=== PATIENT | female | born 1945 | race Caucasian/White ===

== ENCOUNTER 2024-09-10 09:53 | Outpatient (CLI) | payer MEDICARE, BC, SELFPAY ==
--- NOTE | ~2024-09-10 | MR_ITS ---
MRI of the brain Clinical History: Myelopathy, MS Technique: Axial and sagittal T1-weighted images were acquired. These were followed by axial T2-weigh anabelle, diffusion weighted, gradient, and FLAIR images. Following intravenous administration of 10 cc Pr oHance gadolinium, T1-weighted fat-sat imaging was performed in the axial, coronal, and sagittal plan es. COMPARISON: 10/09/2017 Findings: No acute infarct, internal hemorrhage or mass lesion seen. There are numerous white matter lesions throughout the periventricular white matter bilaterally, similar to prior exam. Ventricles and subarachnoid spaces are unremarkable. Orbits are unremarkable. There is bilateral maxi llary and ethmoid sinus disease. Remaining paranasal sinuses are clear. Major intracranial flow voids appear intact. Sagittal midline structures are intact. No abnormal postcontrast enhancement identified. IMPRESSION: Stable extensive white matter disease, compatible history of multiple sclerosis. No active/enhancing plaque identified. Reviewed, dictated and finalized at [facility]. IMPRESSION: Stable extensive white matter disease, compatible history of multiple sclerosis . No active/enhancing plaque identified.
--- NOTE | ~2024-09-10 | MR_ITS ---
MRI of the cervical spine Clinical History: Myelopathy, MS Technique: Axial T2-weighted and gradient images, and sagittal T1-weighted, T2-weighted, and STIR radha ges were acquired. Following intravenous administration of 10 cc ProHance gadolinium, T1-weighted fat -sat imaging was performed in the axial and sagittal planes. COMPARISON: 10/09/2017 Findings: No acute fracture seen. Minimal grade 1 retrolisthesis of C4 over C5, and of C5 over C6 are present. 4 mm anterolisthesis of C7 over T1 present. No suspicious bone marrow signal abnormality se en. At C2-C3, there is no disc bulge or herniation. No spinal canal stenosis, cord compression, or neural foraminal narrowing. There is mild left facet arthropathy. At C3-C4, there is no significant disc bulge or herniation. There is mild facet arthropathy. No centr al canal stenosis, cord compression, or neural foraminal narrowing. At C4-C5, there is advanced degenerative disc disease. There is minimal disc bulge. No spinal canal s tenosis or cord compression. There is moderate bilateral neural foraminal narrowing, right worse than left. At C5-C6, there is advanced degenerative disc narrowing. There is disc osteophyte complex with modera te canal stenosis and mild ventral cord compression. There is advanced bilateral neural foraminal dajuan rowing. At C6-C7, there is advanced degenerative disc narrowing. There is minimal disc bulge. No spinal canal stenosis or cord compression. There is mild to moderate bilateral neural foraminal narrowing. No definite abnormal signal seen in the spinal cord. Paravertebral soft tissues are unremarkable. No abnormal postcontrast enhancement seen. Impression: Moderate degenerative spondylosis, worst at C5-C6, as detailed above. No distinct spinal cord signal abnormality seen. 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 Reviewed, dictated and finalized at [facility]. Impression: Moderate degenerative spondylosis, worst at C5-C6, as detailed above. No distinct spinal cord signal abnormality seen. 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
--- NOTE | 2024-09-10 12:38 | WPDPFTINT ---
PFT Procedure Performed PFT Procedure Performed Plethysmography (Lung Vol) Diffusing Cap (DLCO) Flow Vol Loop Spirometry w/o Bronchodil PFT Interpretation This is a pulmonary function test with spirometry, plethysmography and diffusing capacity. The test was performed and results interpreted in accordance with the 2019 and 2005 ATS/ERS Task Force guidelines respectively using the Global Lung Function Initiative-2012 reference equations. Patient demonstrated good effort and cooperation. Reproducibility criteria were met. The quality of the spirometry maneuver was Grade A. Findings: Spirometry: The contour the inspiratory and expiratory flow tracing are normal. The FVC is 2.73 L, 104% predicted. The FEV1 is 1.77 L, 89% predicted. The FEV1: FVC ratio is 65%. Plethysmography: The total lung capacity is 5.33 L, 105% predicted. The functional residual capacity is 3.70 L, 127% predicted. The residual volume is 2.61 L, 111% predicted. Diffusing capacity: The diffusing capacity unadjusted for hemoglobin and carboxyhemoglobin is 15.1, 77% predicted. The diffusing capacity adjusted for alveolar volume is 3.22, 77% predicted. Impression: The spirometry is normal without evidence of an obstructive abnormality. The lung volumes are normal. The diffusing capacity is normal. There are no prior studies for comparison
== END 2024-09-10 09:54 | disposition home or self-care (01) ==
PROVIDERS: PCP Internal Medicine; Visit Provider Internal Medicine
DX: R06.09 Other forms of dyspnea (principal); R90.82 White matter disease, unspecified
CPT/HCPCS: 70553; 72156; 94375; 94726; 94729; A9579